=== PATIENT | female | born 1990 | race Caucasian/White ===

== ENCOUNTER 2019-09-22 21:00 | Emergency (ER) | payer BC ==
[~2019-09-22] VITALS: Ht 162.6 cm; Wt 87.1 kg
[2019-09-22 21:04] VITALS: Ht 162.6 cm; Wt 87.1 kg
[2019-09-23 00:38] VITALS: BP 127/88
== END 2019-09-23 00:38 | disposition home or self-care (01) ==
LOC: ED 21:00
DX: S82.851A Displaced trimalleolar fracture of right lower leg, initial encounter for closed fracture (principal); W19.XXXA Unspecified fall, initial encounter; Y93.89 Activity, other specified; Y92.89 Other specified places as the place of occurrence of the external cause; Y99.8 Other external cause status
CPT/HCPCS: J2405; J3010; J3490; Q0092